=== PATIENT | female | born 1985 | race Caucasian/White ===

== ENCOUNTER 2019-01-04 19:55 | Emergency (ER) | payer OTHER ==
[2019-01-04] MEDS ORDERED: TRAMADOL HCL50 MG PO (21:50)
[2019-01-04 21:56] VITALS: BP 134/76
== END 2019-01-04 22:03 | disposition home or self-care (01) | DRG 605 ==
LOC: ED 19:55
DX: S80.212A Abrasion, left knee, initial encounter (principal); S16.1XXA Strain of muscle, fascia and tendon at neck level, initial encounter; S39.012A Strain of muscle, fascia and tendon of lower back, initial encounter; S09.90XA Unspecified injury of head, initial encounter; V53.5XXA Driver of pick-up truck or van injured in collision with car, pick-up truck or van in traffic accident, initial encounter; Z33.1 Pregnant state, incidental
CPT/HCPCS: J0131

== ENCOUNTER 2020-02-18 20:15 | Emergency (ER) | payer OTHER ==
[~2020-02-18] VITALS: Ht 172.7 cm; Wt 78.1 kg
[~2020-02-18 20:15] MED LIST: TRAMADOL HCL50 MG PO
[2020-02-18] MEDS ORDERED: ATIVAN1 M1 PO (20:29)
[2020-02-18] MEDS ORDERED: FIORICET PO (20:30)
[2020-02-18 21:11] LABS: HEMATOCRIT 38.8 % (37.0-47.0); HEMOGLOBIN 12.6 g/dl (12.0-16.0); IMMATURE GRANULOCYTES 0.4 % (0.0-5.0); MEAN CELL VOLUME 88.2 fL CALC (80.0-100.0); MEAN CORPUSCULAR HGB 28.6 pG CALC (26.0-32.0); MEAN CORPUSCULAR HGB CONC 32.5 g/dL CAL (32.0-36.0); NEUT# 6.52 thou/uL (2.00-7.15); RED BLOOD COUNT 4.4 mill/uL (4.20-5.60); RED CELL DISTRI WIDTH 14.3 % (11.5-15.5)
[2020-02-18 21:21] LABS: ALBUMIN 4.2 g/dL (3.2-5.0); ALKALINE PHOSPHATASE 90 u/l (38-126); AMYLASE 69 u/l (30-110); ANION GAP 11 (6-22 (CALC)); BILIRUBIN, TOTAL 0.4 mg/dL (0.0-1.4); BUN 9 mg/dL (7-17); BUN/CREATININE RATIO 14 (12-20 (CALC)); CARBON DIOXIDE 20 mmol/l (22-30); CHLORIDE 112 mmol/l (95-108); CREATININE 0.6 mg/dL (0.5-1.0); GFR > 60 ML/MIN (>=60 (CALC)); GFR FOR AFR.AMER. > 60 ML/MIN (>=60 (CALC)); LIPASE 85 u/l (23-300); POTASSIUM 3.5 mmol/l (3.5-5.1); SGOT/AST 20 u/l (14-36); SODIUM 140 mmol/l (137-146)
[2020-02-18 21:32] LABS: MYOGLOBIN 23 ng/mL (0 - 62)
[2020-02-18 21:42] LABS: ACT PARTIAL THROMBO TIME 27.4 SECONDS (20.0-32.5); PROTHROMBIN TIME 10.1 SECONDS (9.0-12.5)
[2020-02-18 21:55] LABS: D-DIMER 0.21 mg/L (0.19-0.60)
[2020-02-18] MEDS ORDERED: VOLTAREN75 MG PO (22:40)
[2020-02-18 23:07] VITALS: BP 106/55
== END 2020-02-18 23:07 | disposition home or self-care (01) | DRG 313 ==
LOC: ED 20:15
PROVIDERS: Family Medicine
DX: R07.89 Other chest pain (principal); F41.9 Anxiety disorder, unspecified; F17.210 Nicotine dependence, cigarettes, uncomplicated; Z20.822 Contact with and (suspected) exposure to COVID-19